=== PATIENT | female | born 1965 | race Caucasian/White ===

== ENCOUNTER → 2018-03-09 12:13 | Outpatient (CLI) | payer OTHER, SELFPAY ==
--- NOTE | 2018-03-09 | DI.MG.S_ITS ---
BILATERAL DIGITAL SCREENING MAMMOGRAM 3D/2D WITH CAD: 03/09/2018 CLINICAL: Routine screening. Family history of breast cancer. Comparison is made to exams dated: 11/05/2015 mammogram, 10/16/2014 mammogram, and 10/02/2013 mammogram - [facility]. The tissue of both breasts is heterogeneously dense. This may lower the sensitivity of mammography. Current study was also evaluated with a Computer Aided Detection (CAD) system. No significant masses, calcifications, or other findings are seen in either breast. There has been no significant interval change. IMPRESSION: NEGATIVE There is no mammographic evidence of malignancy. A 1 year screening mammogram is recommended. This exam was interpreted at Station ID: [id number]. NOTE: For mammograms, a report in lay terms will be sent to the patient. Approximately 15% of breast malignancies will not be visualized mammographically. In the management of a palpable breast mass, a negative mammogram must not discourage biopsy of a clinically suspicious lesion. Electronically Signed By: Carola rock/tristan:03/09/2018 13:53:46 letter sent: Normal Exam ACR BI-RADS Category 1: Negative [id number]
== END ==
PROVIDERS: Family Provider Physician Assistant Medical; PCP Physician Assistant Medical; Visit Provider Family Medicine
DX: Z12.31 Encounter for screening mammogram for malignant neoplasm of breast (principal); Z80.3 Family history of malignant neoplasm of breast
CPT/HCPCS: 77063; 77067

== ENCOUNTER → 2020-01-17 09:55 | Outpatient (CLI) | payer OTHER, SELFPAY ==
--- NOTE | 2020-01-17 | DI.RAD.S_ITS ---
PROCEDURE: FL BARIUM SWALLOW W SPEECH INDICATIONS: Other diseases of vocal cords COMPARISON: None. TECHNIQUE: Examination was conducted in conjunction with speech pathology per standard protocol. In the lateral projection, filming was performed of the patient swallowing. AP projection filming may also be performed with patient swallowing. COMPARISON: FINDINGS: Function: The oral preparatory phase appears normal, with proper containment. The subsequent oral propulsive phase, pharyngeal phase, and esophageal phase of swallowing also appear normal with all proffered substances. No evidence of penetration or aspiration. No pathologic vallecular pooling. Morphology: No morphologic abnormality of the pharynx or esophagus. IMPRESSION: Please see speech pathology report dictated independently on a separate report for details. Dictated by: Brady Del Castillo M.D. on 01/17/2020 at 11:48 Approved by: Brady Del Castillo M.D. on 01/17/2020 at 11:50
--- NOTE | 2020-01-17 16:54 | ST.SWALLOW ---
Visit Care Team Role Provider Type Miguelangel Salas DO Primary Care Provider Non-Staff Referring Provider Specialty: Family Practice Address: [address], [place], [address] Email: Alex Seay MD Attending Provider Non-Staff Specialty: Allergy & Immunology Address: [address] [facility] [address], [place], [address] Email: Modified Barium Swallow Study CORRECTIONS NURSE Modified Barium Swallow Study Start: 01/17/20 13:00 Freq: Status: Active Protocol: Document 01/17/20 14:20 LNK (Rec: 01/17/20 14:36 LNK [id number]) Modified Barium Swallow Study Total Time Visit Start Time 11:30 Visit Stop Time 11:55 Total Visit Minutes 25 Referral Referring Physician Alex Seay MD Reason for Referral coughing during meals Patient Information Identification Type Name,Date of Patient History Pt was seen for Modified Barium Swallow Study (MBSS) secondary to c/o coughing with meals and at times her breathing stops during the episodes. Pt is in voice therapy with NICOLAS Nelson for PVFM/laryngospasm. Pt reports that the laryngospasms occur while eating and when smelling strong odors. CORRECTIONS NURSE recommended MBSS to obtain thorough assessment of the pt' s swallow and to determine if pt is experiencing swallow- related triggers for PVFM. Subjective Observations Pt was seated in fluoroscopy chair. Pt was provided with instructions and description of procedures. Pt appeared to be anxious. Patient Positioning Position View Lateral Imaging Lateral View Textures Administered Trials Presented Thin Liquid via Spoon,Thin Liquid via Cup,Pudding Thick Liquid via Spoon,Regular Textures,Barium Tablet Oral Phase Source: MBSIMP (TM) (C) Bolus Specific Scoring Grid Lip Closure No Impairment (WNL) Tongue Control During Bolus Hold Minimal Impairment Bolus Prep/Mastication WFL Bolus Transport/Lingual Motion WFL A/P Lingual Propulsion Delay No Oral Residue WFL Residue Clearing WFL Nasal Regurgitation No Additional Oral Phase Observations OME indicated structures and function to be WFL. Pt has natural dentition in good health. Pharyngeal Phase Source: MBSIMP (TM) (C) Bolus Specific Scoring Grid Delayed Initiation of Pharyngeal Swallow Yes: premature spillage to the valeculla Soft Palate Elevation WFL Tongue Base Strength/Range of Motion Mild Impairment Residue Along the Tongue Base Yes Clearance of Residue Along Tongue Base WFL Laryngeal Elevation Moderate Impairment Anterior Hyoid Movement Moderate Impairment Epiglottic Range of Motion Mild Impairment Vallecular Residue Yes Clearance of Vallecular Residue Minimal Impairment Laryngeal Vestibular Closure Mild Impairment Pharyngeal Stripping Wave WFL Posterior Pharyngeal Wall Residue No Upper Esophageal Sphincter Opening Mild Impairment Residue in the Pyriform Sinuses Yes Clearance of Residue in the Pyriform WFL Sinuses Esophageal Clearance Upright Position Minimal Impairment Pharyngoesophageal Backflow Observed No Additional Pharyngeal Phase Observations Pt's pharyngeal swallow presented with incomplete hyolaryngeal elevation and movement of the hyoid. Additionally there was base of tongue weakness resulting in residue within the valeculla and the pyriform sinses. Reduced hyolaryngeal movements negatively impacted the epiglottic inversion which was inconsistent in sealing he airway. There was penetration with aspiration observed x1 with thin liquids. During this particular trial, the epiglottis was initially horizontal in the pharynx, with the bolus head entering the laryngeal vestibule. There followed complete epiglottal inversion with the rest of the bolus passing to the UES. The epiglottal inversion was observed to be inconsistent in its inversion: at times complete, incomplete for some swallows. Size of the bolus seemed to positively impact the vestibular seal. All other trials were without penetration/aspiration. A/P View Clinical Impressions Dysphagia Type Pharyngeal Findings The pt is currently receiving voice therapy for PVFM. The MBSS was recommended to fully assess the pt's swallow function and to determine any swallow-related triggers for the PVFM. According to the records reviewed and interviewing the pt today, the pt has remarked that the PVFM episodes occur at meals when she is talking or when she is exposed to strong odors. Following the MBSS, the pt was able to see a still picture from the MBSS at the moment of penetration/aspiration. Education was provided regarding talking while eating and the risk of aspirating during those times. She was instructed to swallow before speaking to prevent food/ liquids from entering her airway, leading to a PVFM episode. It is recommended that swallowing exercises designed to strengthen base of tongue and hyolaryngeal elevation be incorporated into pt's current therapy program. Rehabilitation Potential Excellent Patient Appropriate for Therapy Yes Recommendations Diet Liquids Order Thin Diet Order Regular Aspiration Precautions Recommended Precautions Upright at 90 Degrees,Frequent Rest Periods,Small Bites/Sips Treatment Plan Therapy Recommendations Outpatient Speech Therapy,Base of Tongue Exercises, Compensatory Strategy Education Recommended Referrals Primary Care Physician,Other Compensatory Strategies Recommendations Sitting Upright (90 deg), Double Swallow,Liquids from Cup,Small Bites and Sips, Alternate Liquids/Solids Short Term Goals Pt education will be provided to increase the pt's awareness of aspiration risks during meals The pt will be provided with exercises to increase pharyngeal muscle strength and range of motion to reduce swallow related PVFM triggers.
== END ==
PROVIDERS: PCP Family Medicine; Referring Provider Family Medicine; Visit Provider Internal Medicine
DX: J38.3 Other diseases of vocal cords (principal)
CPT/HCPCS: 74230; 92611

== ENCOUNTER 2020-01-28 10:30 | Outpatient (RCR) | payer OTHER, SELFPAY ==
--- NOTE | 2019-12-17 09:26 | ST.OPIE ---
Visit Care Team Role Provider Type Miguelangel Salas DO Primary Care Provider Non-Staff Specialty: Family Practice Address: [address], [place], [address] Email: Alex Seay MD Attending Provider Non-Staff Referring Provider Specialty: Allergy & Immunology Address: [address] [place], [place] [address] [address], [place], [address] Email: Speech-Language Pathology Initial Evaluation RESEARCH PSYCHOLOGIST Voice Resonance Evaluation Start: 12/16/19 12:31 Freq: Status: Active Protocol: Document 12/16/19 17:18 QUYEN (Rec: 12/16/19 17:52 QUYEN [id number]) Voice and Resonance Assessment Session Time Visit Start Time 12:30 Visit Stop Time 13:30 Total Visit Minutes 60 Visit Information Visit Number Initial Evaluation Plan of Care Dates 12/16/19 - 03/10/20 Insurance Information [employer] Next Note Type Next Note Type Treatment Note Referral Referring Physician Dr. Alex Seay Reason for Referral Vocal Fold Dysfunction Setting Setting Outpatient Care Patient History General Information The pt is a 54-yr-old female with complaints of coughing with oral intake and exposure to strong orders (e.g., perfumes, chemicals) leading to extreme coughing. The pt had one such event on Mother's Day that resulted in coughing for nearly 20 minutes and which frightened her. She was recently seen by [facility] who referred the pt to Speech Therapy and requested verbal consultation with RESEARCH PSYCHOLOGIST following evaluation, which will be made. The pt underwent Modified Barium Swallow Study with Speech Therapy in 2011, which revealed normal oral and pharyngeal swallow but slowed esophageal clearing. In 2017, the pt underwent Barium Swallow Study with GI and was found to have esophageal dysmotility. The pt has a history of anxiety and depression, which have been managed intermediate with medication. She also experiences neck and back pain which she treats with exercises, massage, acupuncture, and pain medication (Aleve) as needed. The pt also reported vocal hoarseness that has been present since diagnosis of hypothyroidism in 2001. Hearing Hearing Level Normal Vision Vision Status Not Impaired [place] Langauge Language(s) Spoken in the Home [place] Occupational Status Occupation Status Retired Previous Therapy Previous Speech-Language Therapy No Subjective Subjective The pt arrived on time and provided case history. - Laryngeal Performance S/Z Ratio S/Z Ratio 1.873 Functional for Speech Yes Reduced Laryngeal Function Relative to Yes Respiration CAPE-V Overall Severity 67% Mod-Severe Roughness 33% in conversation (Mod); 66% in sustained phonation (Mod- Severe) Breathiness 11% conversation (Minimal/WFL) ; 67% sustained phonation (Mod -Severe) Strain 50% (Moderate) Pitch 45% (Moderate) Pitch breaks, limited range, monotone Loudness 10% conversation (Minimal/WFL) ; 55% sustained phonation ( Moderate) Normal Resonance? Yes Additional Features Diplophonia,Pitch Instability Other Features Observed Diplophonia perceived in raised pitch glides Maximum Phonation Time MPT Norms: Women (15-25) Men (25-35) Loudness (50-60 dB); Speaking Rate: Oral Reading of Sentences (190 Words Per Minute); Oral Reading of Paragraphs (160-170 WPM); Speaking Rate in Conversation (150-250 WPM) Maximum Phonation Time 7.4 s Maximum Phonation Time Reduced,Unstable Pitch, Unstable Loudness Maximum Phonation Time Comments Continuous phonation observed in conversation. Significant increase in symptoms in sustained phonation task. Jitter/Shimmer Norms: Jitter (Less than or equal to 1.040% - Frequency) Norms: Shimmer (Less than or equal to 3.810% - Amplitude) Jitter 2.27% Shimmer 5.53% Pitch [place] Pitch [place] Pitch Breaks,Reduced Range, Tension,Cessation of Voicing Pitch [place] Comments Diplophonia Breath Support Breath Support At Rest Clavicular Breath Support Sustained Phonation Clavicular Breath Support Conversation Clavicular Speaks on Room Air Yes Voice Pitch Range Norms: Women (100-300 Hz) Men (70-250 Hz) Fundamental Frequency Norms: Women (Mean: 225 Hz; Range: 155-334 Hz) Men ( Mean: 128 Hz; Range: 85-196 Hz) Voice Pitch Limited Variation,Pitch Breaks ,Diplophonia Voice Loudness Moderately Soft/Quiet,Limited Variation Voice Phonatory-based Quality Breathy,Hoarse Fundamental Frequency 245 Hz WNL Paradoxical Vocal Fold Movement Yes: Inability to breath upon Indications trigger Resonance Nasal Resonance Normal Oral Resonance Normal Therapeutic Techniques Therapy Tactics Breath Support,Postural Adjustment,Increase Loudness Findings Findings Moderate-Severe Impairment Voice/Resonance Assessment Assessment 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 Suspect laryngeal tension plays large role in both diagnoses. Vocal quality is characterized by consistent mild-moderate hoarseness, strain and monotone pitch in conversation. Symptoms significantly increase upon sustained phonation, with increases in breathiness, pitch breaks, hoarseness, and occasional diplophonia. Vocal loudness is mildly low in conversation; the pt is often aphonic in sustained phonation and is able to sustain phonation for no more than 7.4 sec. Education and training in diaphragmatic breathing was provided to the pt orally with demonstration and in writing. The pt was unable to release clavicular breathing while seated upright or standing, with and without biofeedback. Improved performance was made while in supine position with book on her belly as biofeedback. The pt is aware of slow breathing techniques, which she has employed unsuccessfully during PVFM attacks. Given history of anxiety, depression, and neck and back pain, suspect pt holds significant tension in and around shoulders and larynx, contributing to symptoms. Instrumental evaluation of swallow function is recommended to assess airway protection, which may contribute to PVFM triggers. Prognosis Rehabilitation Potential Good - Recommendations Treatment Recommended Yes Treatment Frequency/Duration 1x/wk for 5 wks, tapering in frequency thereafter Placement Recommendation Home,Outpatient Therapy Therapy Recommendations Pt education and training in relaxed diaphragmatic breathing techniques to reduce laryngeal tension with subsequent improvement of vocal quality and reduction/ elimination of PVFM episodes. Recommend MBSS for thorough evaluation of swallow function and airway protection. Short Term Goals 1. The pt will participate in Modified Barium Swallow Study for thorough evaluation of swallow function and airway protection. 2. The pt will perform diaphragmatic breathing in structured tasks with 80% accuracy to improve breath support for voice and speech and minimize PVFM symptoms. 3. The pt will perform laryngopharyngeal relaxation exercises to reduce tension and improve vocal quality and minimize PVFM symptoms/ episodes. 4. Using optimal breath support, the pt will perform sustained phonation without pitch breaks at with an average loudness of at least 65 dB for 10 sec to improve breath support for voice and speech and improve vocal quality. 5. The pt will perform forward focus resonance (FFR) tasks using /m/ in isolation, CV syllables, words and sentences to reduce laryngeal tension and improve vocal quality in speech. Mcfp Goals 1. Using optimal breath support and FFR, the pt will produce vocal quality WFL in conversations lasting at least 10 min across three trials to improve ability to perform functional communication tasks . 2. The pt will demonstrated no greater than mild vocal impairment as measured by CAPE -V perceptual rating scale. 3. Using relaxed breathing techniques independently, the pt will demonstrate self- management of PVFM symptoms, as measured by pt report and clinician judgment. 4. Using relaxed breathing techniques as needed, the pt will be free of PVFM symptoms across three weeks, as measured by pt report and clinician judgment. 5. The pt will tolerate regular diet and thin liquids without s/sx of aspiration or PVFM to improve safety and pt comfort and confidence with oral intake. Patient/Caregiver Education Patient/Family Education Described results of evaluation,Patient Understanding,Patient Needs More Info
--- NOTE | 2020-01-01 17:23 | ST.OPTN ---
Visit Care Team Role Provider Type Miguelangel Salas DO Primary Care Provider Non-Staff Address: [address], [place], [address] Alex Seay MD Attending Provider Non-Staff Referring Provider Address: [address], [place], [address] GROUND SYSTEMS ENGINEER Treatment Note GROUND SYSTEMS ENGINEER Treatment Note Start: 12/16/19 12:31 Freq: Status: Active Protocol: Document 01/01/20 16:58 QUYEN (Rec: 01/01/20 17:23 QUYEN [id number]) Speech Pathology Treatment Note Session Time Visit Start Time 12:30 Visit Stop Time 13:23 Total Visit Minutes 53 Visit Information Visit Number 1 Setting Treatment Setting Outpatient Care Visit Type Note Type Treatment Note Next Note Type Next Note Type Treatment Note Subjective Identification Type Name,ID Card Observations/Patient Presentation The pt arrived on time. While she continues to experience episodes of coughing and difficulty breathing, she also reported avoiding at least 2- 3 episodes by using deep breathing techniques. Orders for MBSS have been received. GROUND SYSTEMS ENGINEER/pt called Diagnostic Imaging Dept. during tx session, and MBSS has been scheduled for Jan 16. Chief Complaint(s) Swallowing,Voice Additional Areas of Concern PVFM/Laryngospasm Patient Knowledge/Awareness of GROUND SYSTEMS ENGINEER Role Good in Treatment Objective Treatment Activities Education and feedback was provided to the pt RE her reports of experiences with episodes and those of avoiding episodes, targets/goals of treatment, PVFM vs asthma, and impact of optimal breath support on PVFM symptoms, swallow safety, and voice. Also emphasized the distinction between PVFM and choking symptoms. While the pt was instructed to use breathing techniques to manage PVFM symptoms, she was also instructed to employ coughing and, if need be, Heimlich maneuver if a choking episode occurred. The pt verbalized understanding and stated that she was knowledgeable to Heimlich maneuver, how to administer both to others and to self. Recommended use of hand signals to communicate to her family/friends whether or not she needed their assistance. Also discussed the importance of education of family/friends RE PVFM and breathing technique to reduce anxiety and increase support during those episodes. She verbalized agreement and intention to educate. The pt's questions were answered and safety recommendations and breathing techniques were provided in writing for home practice. Continued training pt in diaphragmatic breathing to reduce/eliminate PVFM symptoms . The pt returned demonstration and verbalized understanding of all information provided. Assessment Patient Response to Treatment Good Rehab Potential Good Impairments Identified Dysphagia,Dysphonia,Vocal Quality Additional Impairments Identified PVFM/Laryngospasm Progress Towards Goals Good Progress Assessment of Overall Progress Improving Assessment of Improvement The pt has demonstrated ability to use breathing techniques to avoid PVFM episodes. Per her report, while she eliminates environmental distractions such as TV during meals, she does frequently talk while eating, which has led to coughing episodes. She was responsive to instructions for swallow safety. She also was engaged with and verbalized understanding of instructions RE educating her family/ friends in targeted safety precautions and breathing techniques and agreed to do so in order to minimize anxiety related to episodes as well as increase support that will hopefully assist her in employing strategies during moments of episodes. Reviewed with Patient Goals,Progress Being Made,Home Exercise Program Plan Amount of Therapy Recommended 1-2 Months Frequency of Treatment Once a Week Length of Session 45 Minutes Therapeutic Contents Client Education,Home Exercise Program,Swallowing/Feeding, Other Additional Areas of Treatment PVFM management Provided Patient/Caregiver Instruction Home Exercise Program,Plan of Care,Questions/Concerns Therapy Recommendations Continue with Current Program
--- NOTE | 2020-01-28 11:38 | ST.OPTN ---
Visit Care Team Role Provider Type Miguelangel Salas DO Primary Care Provider Non-Staff Address: [address], [place], [address] Alex Seay MD Attending Provider Non-Staff Referring Provider Address: [address], [place], [address] BLANKING PRESS OPERATOR Treatment Note BLANKING PRESS OPERATOR Treatment Note Start: 12/16/19 12:31 Freq: Status: Active Protocol: Document 01/28/20 11:26 QUYEN (Rec: 01/28/20 11:37 QUYEN [id number]) Speech Pathology Treatment Note Session Time Visit Start Time 10:40 Visit Stop Time 11:22 Total Visit Minutes 42 Visit Information Visit Number 2 Plan of Care Dates 12/16/19 - 03/10/20 Insurance Information [employer] Setting Treatment Setting Outpatient Care Visit Type Note Type Treatment Note Next Note Type Next Note Type Treatment Note General Information General Information The pt is a 54-yr-old female with complaints of coughing with oral intake and exposure to strong orders (e.g., perfumes, chemicals) leading to extreme coughing. The pt had one such event on Mother's Day that resulted in coughing for nearly 20 minutes and which frightened her. She was recently seen by [facility] who referred the pt to Speech Therapy and requested verbal consultation with BLANKING PRESS OPERATOR following evaluation, which will be made. The pt underwent Modified Barium Swallow Study with Speech Therapy in 2011, which revealed normal oral and pharyngeal swallow but slowed esophageal clearing. In 2017, the pt underwent Barium Swallow Study with GI and was found to have esophageal dysmotility. The pt has a history of anxiety and depression, which have been managed prison with medication. She also experiences neck and back pain which she treats with exercises, massage, acupuncture, and pain medication (Aleve) as needed. The pt also reported vocal hoarseness that has been present since diagnosis of hypothyroidism in 2001. Subjective Identification Type Name,ID Card Observations/Patient Presentation The pt arrived on time. Start of session was delayed d/t error from salon receptionist in pt check-in. MBSS was completed 01/17/20 with findings of pharyngeal dysphagia secondary to reduced hyolaryngeal elevation/ excursion, inconsistent epiglottic inversion, and reduced back and base of tongue strength. This resulted in one episode of tamiko penetration with trace aspiration on thin liquid and in mild pharyngeal residue along tongue and at vallecula and pyriform sinuses. The pt also reported continued episodes of coughing with and without oral intake, particularly when talking while eating, which she is attempting to modify but finding difficult to do. She has employed relaxation and breathing strategies, which have been helpful in preventing or minimizing coughing episodes. She has also educated her on strategies both for the pt and for him, which have been helpful in preventing escalation of anxiety. Chief Complaint(s) Swallowing,Voice Additional Areas of Concern PVFM/Laryngospasm Patient Knowledge/Awareness of BLANKING PRESS OPERATOR Role Good in Treatment Objective Short Term Goals 1. The pt will participate in Modified Barium Swallow Study for thorough evaluation of swallow function and airway protection. 2. The pt will perform diaphragmatic breathing in structured tasks with 80% accuracy to improve breath support for voice and speech and minimize PVFM symptoms. 3. The pt will perform laryngopharyngeal relaxation exercises to reduce tension and improve vocal quality and minimize PVFM symptoms/ episodes. 4. Using optimal breath support, the pt will perform sustained phonation without pitch breaks at with an average loudness of at least 65 dB for 10 sec to improve breath support for voice and speech and improve vocal quality. 5. The pt will perform forward focus resonance (FFR) tasks using /m/ in isolation, CV syllables, words and sentences to reduce laryngeal tension and improve vocal quality in speech. Halfway Goals 1. Using optimal breath support and FFR, the pt will produce vocal quality WFL in conversations lasting at least 10 min across three trials to improve ability to perform functional communication tasks . 2. The pt will demonstrated no greater than mild vocal impairment as measured by CAPE -V perceptual rating scale. 3. Using relaxed breathing techniques independently, the pt will demonstrate self- management of PVFM symptoms, as measured by pt report and clinician judgment. 4. Using relaxed breathing techniques as needed, the pt will be free of PVFM symptoms across three weeks, as measured by pt report and clinician judgment. 5. The pt will tolerate regular diet and thin liquids without s/sx of aspiration or PVFM to improve safety and pt comfort and confidence with oral intake. Treatment Activities Educated pt in MBS findings, including video review. Trained pt in swallow exercises. Attempted to use CTAR exercise, but the pt does have cervical spine/neck issues that contraindicate benefit. Jaw opening exercise was trained in its place. Exercises target strengthening back and base of tongue, pharyngeal constrictors, and laryngeal musculature to increase airway closure. The pt returned demonstration of all exercises and verbalized understanding. All questions were answered. Instructions were provided in writing for home practice. Assessment Patient Response to Treatment Good Rehab Potential Good Impairments Identified Dysphagia,Dysphonia,Vocal Quality Additional Impairments Identified PVFM/Laryngospasm Progress Towards Goals Good Progress Assessment of Overall Progress Improving Assessment of Improvement The pt verbalized and demonstrated understanding of all education and exercise instructions and ability to perform exercises independently. Reviewed with Patient Goals,Progress Being Made,Home Exercise Program Plan Amount of Therapy Recommended 1-2 Months Length of Session 45 Minutes Comment Follow up in 3 wks. Treatment Emphasis Next Session F/U on swallow exercises and breathing strategies; forward focus resonance Therapeutic Contents Client Education,Home Exercise Program,Swallowing/Feeding, Other Additional Areas of Treatment PVFM management Provided Patient/Caregiver Instruction Home Exercise Program,Plan of Care,Questions/Concerns Therapy Recommendations Continue with Current Program
--- NOTE | 2020-04-06 09:58 | ST.OPTN ---
Visit Care Team Role Provider Type Miguelangel Salas DO Primary Care Provider Non-Staff Address: [address], [place], [address] Alex Seay MD Attending Provider Non-Staff Referring Provider Address: [address], [place], [address] TABLE GAMES MANAGER Treatment Note TABLE GAMES MANAGER Treatment Note Start: 12/16/19 12:31 Freq: Status: Active Protocol: Document 04/06/20 09:55 QUYEN (Rec: 04/06/20 09:58 QUYEN [id number]) Speech Pathology Treatment Note Visit Information Plan of Care Dates 12/16/19 - 03/10/20 Insurance Information [employer] Setting Treatment Setting Outpatient Care Visit Type Note Type Discharge Summary General Information General Information The pt is a 54-yr-old female with complaints of coughing with oral intake and exposure to strong orders (e.g., perfumes, chemicals) leading to extreme coughing. The pt had one such event on Mother's Day that resulted in coughing for nearly 20 minutes and which frightened her. She was recently seen by [facility] who referred the pt to Speech Therapy and requested verbal consultation with TABLE GAMES MANAGER following evaluation, which will be made. The pt underwent Modified Barium Swallow Study with Speech Therapy in 2011, which revealed normal oral and pharyngeal swallow but slowed esophageal clearing. In 2016, the pt underwent Barium Swallow Study with GI and was found to have esophageal dysmotility. The pt has a history of anxiety and depression, which have been managed rodent exterminator with medication. She also experiences neck and back pain which she treats with exercises, massage, acupuncture, and pain medication (Aleve) as needed. The pt also reported vocal hoarseness that has been present since diagnosis of hypothyroidism in 2001. Subjective Observations/Patient Presentation The pt was last seen 01/28/20. Attempted to f/u with pt by phone in February. No return call. The pt will be discharged from skilled services at this time. Chief Complaint(s) Swallowing,Voice Additional Areas of Concern PVFM/Laryngospasm Objective Short Term Goals GOALS NOT MET UNLESS OTHERWISE INDICATED 1. The pt will participate in Modified Barium Swallow Study for thorough evaluation of swallow function and airway protection. GOAL MET 2. The pt will perform diaphragmatic breathing in structured tasks with 80% accuracy to improve breath support for voice and speech and minimize PVFM symptoms. 3. The pt will perform laryngopharyngeal relaxation exercises to reduce tension and improve vocal quality and minimize PVFM symptoms/ episodes. 4. Using optimal breath support, the pt will perform sustained phonation without pitch breaks at with an average loudness of at least 65 dB for 10 sec to improve breath support for voice and speech and improve vocal quality. 5. The pt will perform forward focus resonance (FFR) tasks using /m/ in isolation, CV syllables, words and sentences to reduce laryngeal tension and improve vocal quality in speech. Long-Term Goals GOALS NOT MET 1. Using optimal breath support and FFR, the pt will produce vocal quality WFL in conversations lasting at least 10 min across three trials to improve ability to perform functional communication tasks . 2. The pt will demonstrated no greater than mild vocal impairment as measured by CAPE -V perceptual rating scale. 3. Using relaxed breathing techniques independently, the pt will demonstrate self- management of PVFM symptoms, as measured by pt report and clinician judgment. 4. Using relaxed breathing techniques as needed, the pt will be free of PVFM symptoms across three weeks, as measured by pt report and clinician judgment. 5. The pt will tolerate regular diet and thin liquids without s/sx of aspiration or PVFM to improve safety and pt comfort and confidence with oral intake. Plan Therapy Recommendations Discharge from Speech Therapy
== END 2020-06-05 11:08 | disposition home or self-care (01) ==
LOC: SP 10:30
PROVIDERS: PCP Family Medicine; Referring Provider Internal Medicine; Visit Provider Internal Medicine
DX: J38.3 Other diseases of vocal cords (principal)
CPT/HCPCS: 92507; 92520; 92524; 92526

== ENCOUNTER 2021-03-11 14:36 | Emergency (ER) | payer OTHER, SELFPAY ==
[2021-03-11] VITALS (8 sets, daily range): BP systolic 133–175; BP diastolic 85–91; PULSE 95–110; RESP 16–18; TEMP 36.9; O2SAT 95–98; BMI 34.9
--- NOTE | 2021-03-11 15:45 | ED_ITS ---
HPI - SOB/Dyspnea <Radha Wong, [facility] - Last Filed: 03/11/21 18:19> General Chief Complaint: Shortness of Breath/Dyspnea Stated Complaint: Worsening Covid Time Seen by Provider: 03/11/21 15:11 Source: patient Mode of arrival: Ambulatory Limitations: no limitations History of Present Illness HPI Narrative: 55-year-old female presents to the emergency department today knowing that she is COVID positive as of a positive test on 03/03/2021, she states her symptoms started on 03/01/2021. She complains of a cough, intermittent fever, feeling tired, and has had some diarrhea. She is unva ccinated, states her is in the ICU with COVID at this time and she contracted it from him taking care of him a couple weeks ago. She denies any difficulty breathing, she does report having a productive cough sometimes has blood streaks in it, she reports that she is coughing frequently throughout the day but is not wheezing. She is afebrile today states it has been 2 days since she last had a fever, did she denies any nausea or vomiting. She states she does have diabetes and a history of hypertension so she feels like she is at risk having a poor outcome. She reports that she is feeling anxious about this since her is in the hospital. Related Data Home Medications Medication Instructions Recorded Confirmed [[id number]] QDAY #0 10/26/16 atenolol 25 mg tablet 25 mg PO QDAY #0 10/26/16 cetirizine 10 mg tablet 10 mg PO QDAYP PRN #0 10/26/16 cholecalciferol (vitamin D3) 100 4,000 PO QDAY #0 10/26/16 mcg (4,000 unit) capsule (Vitamin D3) conjugated estrogens 1.25 mg 1.25 mg PO QDAY #0 10/26/16 tablet (Premarin) dexlansoprazole 60 mg 60 mg PO QDAY #0 10/26/16 capsule,biphase delayed release (Dexilant) duloxetine 60 mg capsule,delayed 100 mg PO QDAY #0 10/26/16 release fluticasone propionate 50 1 spray INTRANASAL QDAY #0 10/26/16 mcg/actuation nasal spray,suspension gabapentin 300 mg capsule 300 mg PO BID #0 10/26/16 (Neurontin) levothyroxine 112 mcg tablet 0.112 mg PO QDAY #0 10/26/16 metformin 500 mg tablet,extended 250 mg PO QDAY #0 10/26/16 release 24 hr (Glucophage XR) Allergies Allergy/AdvReac Type Severity Reaction Status Date / Time amoxicillin [From AUGMENTIN] Allergy Severe ERYTHEMA Unverified 08/30/17 13:01 MULTIFORMA clavulanic acid Allergy Severe ERYTHEMA Unverified 08/30/17 13:01 [From AUGMENTIN] MULTIFORMA codeine [CODEINE] Allergy Mild RASH Unverified 08/30/17 13:01 erythromycin base Allergy Mild RASH Unverified 08/30/17 13:01 [ERYTHROMYCIN BASE] Penicillins [PENICILLINS] Allergy Mild RASH Unverified 08/30/17 13:01 Review of Systems <RAKEL Fan - Last Filed: 03/11/21 18:19> Review of Systems Narrative: General: Endorses intermittent fever, denies chills Head/Neck: denies headache, neck pain Eyes: denies visual changes, eye pain Cardio: denies chest pain, palpitations Respiratory: denies shortness of breath, she does have a productive cough GI: denies abdominal pain, nausea, vomiting, endorses having diarrhea occasionally : denies dysuria, hematuria MSK: denies joint pain, muscle weakness, endorses having myalgias Skin: denies rash, itching Neuro: denies numbness, tingling, no syncope, no dizziness Patient History <RAKEL Fan - Last Filed: 03/11/21 18:19> Social History Smoking Status: Never smoker Smoking Status: Never smoker alcohol intake frequency: 0-2 drinks per day Substance Use Type: does not use Exam <RAKEL Fan - Last Filed: 03/11/21 18:19> Narrative Exam Narrative: Independently reviewed vitals signs and nursing notes. General: Awake, alert, nontoxic, no cardiorespiratory distress, afebrile, GCS is 15 Head/Neck: Atraumatic, neck full range of motion Eyes: EOMI, conjunctiva normal Nose: nares patent, no rhinorrhea Mouth/Throat: moist mucus membranes, posterior pharynx normal, no oral lesions Cardio: Regular rate and rhythm, no peripheral edema Respiratory: Tachypnea present, respirations unlabored without wheezing, stridor, or rales. No retractions. No witnessed cough or productive cough. Breath sounds are clear throughout all garcia. GI: Abdomen soft, nontender MSK: Moves all extremities, neurovascularly intact Skin: Normal capillary refill, no rash Neuro: Normal speech and cognition, normal gait Initial Vital Signs Initial Vital Signs: Vital Signs Temperature 98.4 F 03/11/21 14:43 Pulse Rate 104 H 03/11/21 14:43 Respiratory Rate 18 03/11/21 14:43 Pulse Oximetry 97 03/11/21 14:43 <Luis Major MD - Last Filed: 03/11/21 18:31> Initial Vital Signs Initial Vital Signs: Vital Signs Temperature 98.4 F 03/11/21 14:43 Pulse Rate 104 H 03/11/21 14:43 Respiratory Rate 18 03/11/21 14:43 Pulse Oximetry 97 03/11/21 14:43 Scores <RAKEL Fan - Last Filed: 03/11/21 18:19> Wells' Criteria for PE Clinical signs and symptoms of DVT: No PE is #1 Dx or equally likely: No Heart rate > 100: No Immobilization at least 3 days or surg in previous 4 weeks: No History of PE or DVT: No Hemoptysis: Yes Malignancy w/Treatment within 6 months or palliative: No Wells' PE Score total: 1 Citation:: She states she thinks the hemoptysis is most likely due to her frequent cough, she also reports that it is not tamiko blood that she has just had some is streaking of blood in her sputum. <Luis Major MD - Last Filed: 03/11/21 18:31> Wells' Criteria for PE Wells' PE Score total: 1 Course <RAKEL Fan - Last Filed: 03/11/21 18:19> Orders Ordered: Discontinued Medications Acetaminophen (Acetaminophen 325 Mg Tablet) 975 mg PO NOW ONE Stop: 03/11/21 16:03 Last Admin: 03/11/21 16:07 Dose: 975 mg Documented by: VIVEK Vital Signs Vital signs: Vital Signs - 8 hr 03/11/21 14:43 03/11/21 14:47 03/11/21 14:53 Temperature 98.4 F Pulse Rate 104 H 98 H Respiratory Rate 18 Blood Pressure 175/85 H Pulse Oximetry 97 97 03/11/21 15:00 03/11/21 15:30 03/11/21 15:46 Temperature Pulse Rate 95 H 96 H 98 H Respiratory Rate Blood Pressure 133/91 H Pulse Oximetry 98 95 96 03/11/21 15:51 03/11/21 16:03 Temperature Pulse Rate 110 H 98 H Respiratory Rate 16 Blood Pressure Pulse Oximetry 95 98 <Luis Major MD - Last Filed: 03/11/21 18:31> Orders Ordered: Discontinued Medications Acetaminophen (Acetaminophen 325 Mg Tablet) 975 mg PO NOW ONE Stop: 03/11/21 16:03 Last Admin: 03/11/21 16:07 Dose: 975 mg Documented by: VIVEK Vital Signs Vital signs: Vital Signs - 8 hr 03/11/21 14:43 03/11/21 14:47 03/11/21 14:53 Temperature 98.4 F Pulse Rate 104 H 98 H Respiratory Rate 18 Blood Pressure 175/85 H Pulse Oximetry 97 97 03/11/21 15:00 03/11/21 15:30 03/11/21 15:46 Temperature Pulse Rate 95 H 96 H 98 H Respiratory Rate Blood Pressure 133/91 H Pulse Oximetry 98 95 96 03/11/21 15:51 03/11/21 16:03 Temperature Pulse Rate 110 H 98 H Respiratory Rate 16 Blood Pressure Pulse Oximetry 95 98 MDM - SOB/Dyspnea <RAKEL Fan - Last Filed: 03/11/21 18:19> MDM Narrative Medical decision making narrative: 55-year-old female with past medical history of diabetes and hypertension presents to the emergency department today for known COVID positive diagnosis since 03/03/2021, she had symptoms since 03/01/2021. She complains of shortness of breath and cough as her most bothersome complaints. Her is in the ICU for COVID this time, she reports feeling very anxious about this happening to her. She reports has been 2 days to see out of fever, she think she is overall getting better but she is concerned that her course has been long in her opinion. When asked about her shortness of breath, she reports that she does not feel like it is hard to breathe she mostly just feels sore and tired. She does not have shortness of breath. Her exam and history are reassuring, patient is afebrile, does not have nausea vomiting, does not have hypoxia with ambulation, O2 sats are 95% on room air while ambulating. Breath sounds are clear throughout, patient is nontoxic appearing. Discussed options for treatment including monoclonal antibodies as patient would qualify for this. Patient is interested in treatment, [facility]. Patient given information about risks of this and patient agrees that she is interested. Discharge Plan Departure Patient Disposition: Home Clinical Impression: COVID-19 Instructions: DI for COVID-19 (Suspected or Confirmed ) Activity Restrictions/Additional Instructions: *You have been diagnosed with [ COVID-19] We have faxed the documents over for monoclonal antibodies, they will call you in the next 48 hours for an appointment. *What to do: * per recommendations from the CDC and the [facility] Department of Health * stay home except to get medical care. Restrict activities outside your home, except for getting medical care. Do not go to work, school, or public areas. Avoid using public transportation, ride sharing, or taxis. * separate yourself from other people in your home. * call ahead before visiting your doctor * Wear a facemask * Cover your coughs and sneezes * Clean your hands often * Avoid sharing household items * Clean all high-touch services every day * Monitor your symptoms and seek prompt medical attention if your illness is worsening, particularly with difficulty in breathing. You may discontinue your isolation when: 1. You have been fever-free for at least 24 hours without the use of fever reducing medication, AND 2. Your symptoms are getting better 3. At least 10 days have passed since symptoms first appeared Individuals with laboratory confirmed COVID-19 who have not had any symptoms may discontinue home isolation when at least 10 days have passed since the date of their first COVID-19 diagnostic test and have had no subsequent illness *What to do: *Please continue to take your regular medications as directed. [ ] New medication prescriptions sent to your pharmacy: [ ] [ ] New medication written as a paper prescription [ x] No new medications given *Please follow up with your primary care provider in 2-3 days, call for an appointment. Let them know you were seen in the Emergency Department and that we ask that you be seen in follow up. We will electronically transmit a record of today's note if your PCP is in our system *If you do not have a primary care provider please contact the [facility] Resource line at [phone]. They will ask some questions about your medical history and help get you set up with a doctor in the community. *Return to Emergency Department if you should have any new, worsening or concerning symptoms, such as [fever greater than 101F, chills, worsening pain, persistent vomiting or other bothersome symptoms] Prescriptions: No Action metformin [Glucophage XR] 500 MG tablet extended release 24 hr 250 mg PO QDAY Qty: 0 RF: 0 conjugated estrogens [Premarin] 1.25 MG tablet 1.25 mg PO QDAY Qty: 0 RF: 0 levothyroxine 112 MCG tablet 0.112 mg PO QDAY Qty: 0 RF: 0 [H-[id number]-THYRONIN] QDAY Qty: 0 RF: 0 gabapentin [Neurontin] 300 MG capsule 300 mg PO BID Qty: 0 RF: 0 duloxetine 60 MG capsule,delayed release(DR/EC) 100 mg PO QDAY Qty: 0 RF: 0 dexlansoprazole [Dexilant] 60 MG capsule,biphase delayed releas 60 mg PO QDAY Qty: 0 RF: 0 cetirizine 10 MG tablet 10 mg PO QDAYP PRNQty: 0 RF: 0 atenolol 25 MG tablet 25 mg PO QDAY Qty: 0 RF: 0 fluticasone propionate 16 GM spray,suspension 1 spray Intranasal QDAY Qty: 0 RF: 0 cholecalciferol (vitamin D3) [Vitamin D3] 4,000 UNIT capsule 4,000 PO QDAY Qty: 0 RF: 0 Referrals: Miguelangel Salas DO [Primary Care Provider] - <Luis Major MD - Last Filed: 03/11/21 18:31> [facility] Attending Penny Attestation: I was immediately available in the department for consultation. This documentation has been reviewed and I agree with assessment and plan. Supervised by Luis Major MD
[2021-03-11] MEDS: ACETAMINOPHEN 325 MG TABLET 975 MG PO (16:07)
== END 2021-03-11 17:27 | disposition home or self-care (01) ==
PROVIDERS: Emergency Provider Nurse Practitioner Critical Care Medicine; PCP Family Medicine
DX: U07.1 COVID-19 (principal)
CPT/HCPCS: 99283

== ENCOUNTER → 2023-12-11 10:52 | Outpatient (CLI) | payer MEDICARE, SELFPAY ==
--- NOTE | 2023-12-11 10:59 | DI.CT.S_ITS ---
PROCEDURE: CT SOFT TISSUE NECK W CON INDICATIONS: paralysis TECHNIQUE: After the administration of intravenous contrast, 3.0 mm axial sections acquired from the sella to the aortic arch. 3 mm thick coronal and sagittal reformats were generated. For radiation dose reduction, the following was used: automated exposure control. COMPARISON: None. FINDINGS: Skull Base: The visualized intracranial contents, skull, and orbits are unremarkable. Visualized paranasal sinuses are clear. Pharynx and Larynx: The nasopharyngeal airway is patent and midline. Parapharyngeal soft tissues including palatine tonsils and base of the tongue are normal. Retropharyngeal space unremarkable. There is asymmetry the glottis. The retinoid cartilage is asymmetrically positioned, both vocal cords appear redundant. Additionally, there is asymmetric collapse of the right piriform sinus.6 Muscles and Fascial Planes: Fascial planes are well maintained. No abscess or mass lesion. Lymph Nodes: Bilateral deep cervical . Level 2A nodes on the left measures 1 point 4 x 1.0 cm, and on the right, there is another level 2A node measuring 1.4 x 1.0 cm Vasculature: Unremarkable. Submandibular and Parotid Glands: Normal in size and attenuation. Thyroid: Unremarkable. No enlarged or calcified nodules. Bones: No acute fracture. No osteolytic or blastic lesion is evident. Normal bone mineralization. Lung Apices: The visualized lung apices are clear. IMPRESSION: Asymmetry of the glottis and right piriform sinus. Consider direct visualization for further evaluation. Bilateral deep cervical adenopathy Approved by: Jimmie Tellez M.D. on 12/11/2023 at 18:21
[2023-12-11 11:21] LABS: Estimated Glomerular Filt Rate > 60 mL/min (>60)
== END ==
LOC: CT 10:58
PROVIDERS: Radiology Diagnostic Radiology; PCP Nurse Practitioner Family; Referring Provider Otolaryngology; Visit Provider Otolaryngology
DX: R49.0 Dysphonia (principal); J38.00 Paralysis of vocal cords and larynx, unspecified; R59.0 Localized enlarged lymph nodes
CPT/HCPCS: 36415; 70491; 82565; Q9967